=== PATIENT | male | born 1970 | race Hispanic/Latino ===

== ENCOUNTER 2020-05-17 09:48 | Emergency (ER) | payer BC ==
[2020-05-17] MEDS ORDERED: Sodium Chloride 0.9% 1,000 ML ONE (10:19)
[2020-05-17] MEDS ORDERED: Ketorolac Tromethamine 30 MG/ML VIAL ONE (10:19)
[2020-05-17 10:27] LABS: #Lymphocytes 0.7 thou/uL (1.20-3.40); #Monocytes 0.3 thou/uL (0.11-0.59); #Neutrophils 4.2 thou/uL (1.40-6.50); %Basophils 0.4 % (0.0-1.0); %Lymphocytes 12.9 % (21.0-51.0); %Monocytes 5.1 % (0.0-10.0); %Neutrophils 81.6 % (42.0-75.0); Hemoglobin 13.7 g/dL (14.0-18.0); Mean Corpuscular HGB CONC 32.4 g/dL (32.0-36.0); Mean Corpuscular Hemoglobin 29.7 pg (27.0-31.0); Mean Corpuscular Volume 91.6 fL (78.0-98.0); Platelet Count 206 thou/uL (130-400); RBC Distribution Width 12.4 % (11.5-14.5); Red Blood Cell (RBC) Count 4.61 mill/uL (4.70-6.10); White Blood Cell (WBC) Count 5.1 thou/uL (4.8-10.8)
[2020-05-17 10:39] LABS: Anion Gap 26 mmol/L (10-20); BUN (Urea Nitrogen) 12 mg/dL (8.4-25.7); Calc. Creatinine Clearance 0 mL/min (70-130); Calcium 9.3 mg/dL (7.8-10.44); Carbon Dioxide 12 mmol/L (22-29); Chloride 103 mmol/L (98-107); Estimated GFR-MDRD 51; Glucose 143 mg/dL (70-105); Potassium 4.1 mmol/L (3.5-5.1); Sodium 137 mmol/L (136-145)
--- NOTE | 2020-05-17 10:40 | RAD ---
EXAM: Chest 2 views: HISTORY: Cough COMPARISON: None. FINDINGS: There is a normal-sized cardiomediastinal silhouette. There is no evidence of consolidation, mass, or pleural effusion. The bones are unremarkable. IMPRESSION: No evidence of acute cardiopulmonary disease
[2020-05-17 11:14] LABS: Base Excess-Venous -14.5 mmol/L (-2.0 to 3.0); Bicarbonate (HCO3v) 13.1 mmol/L (22.0-28.0); CO2 Tension (PvCO2) 35.9 mmHg (40.0-50.0); Chloride 110 mmol/L (98-107); Hemoglobin - Calc 13.9 g/dL (14.0-18.0); Potassium 4.5 mmol/L (3.5-5.1); Sodium 134 mmol/L (138-145); T. Carbon Dioxide 14.2 mmol/L (22.0-28.0); vO2 Saturation-calc 79.6 % (60.0-85.0)
[2020-05-17 11:27] LABS: Bilirubin Small (Negative); Blood, Urine Negative (Negative); Clarity Clear (Clear); Glucose, Urine (Dipstick) 500 mg/dL (Negative); Leukocyte Negative (Negative); Nitrite Negative (Negative); Protein, Urine (Dipstick) 100 mg/dL (Neg-Trace); Urobilinogen 0.2 mg/dL (Less than 2)
[2020-05-17] MEDS ORDERED: Sodium Chloride 0.9% 100 ML ONE (11:28)
[2020-05-17] MEDS ORDERED: Insulin Regular 300 UNITS/3 ML VIAL ONE (11:28)
[2020-05-17] MEDS ORDERED: Dextrose 5 %-0.45 % NaCl 1,000 ML ONE (11:28)
[2020-05-17 11:34] LABS: Bacteria/HPF Rare-Few HPF (None Seen); Mucous/LPF Rare LPF (<2+); RBC/HPF None Seen HPF (0-3); Squamous Epithelial 0-3 HPF (0-3); WBC/HPF None Seen HPF (0-3)
== END 2020-05-17 11:53 | disposition short-term general hospital (02) ==
LOC: MADERS 09:48
DX: E11.10 Type 2 diabetes mellitus with ketoacidosis without coma (principal); Z79.84 Long term (current) use of oral hypoglycemic drugs; Z79.899 Other long term (current) drug therapy
CPT/HCPCS: 36415; 71046; 80048; 81003; 81015; 82330; 82550; 82803; 83605; 84484; 85025; 96374; 96375; 96376; J1815; J1885; J3490; J7042; J7050

== ENCOUNTER 2024-11-28 23:45 | Emergency (ER) | payer BC ==
[~2024-11-28 23:45] MED LIST: Iopamidol 370 76% 100 ML VIAL ONE
[2024-11-29] MEDS ORDERED: Metoclopramide HCl 10 MG (2 mL) VIAL ONE (00:23)
[2024-11-29] MEDS ORDERED: Lactated Ringer's 1,000 ML ONE (00:24)
[2024-11-29] MEDS ORDERED: Morphine 4 MG/ML VIAL ONE (00:24)
[2024-11-29] MEDS ORDERED: Famotidine/PF 20 mg/2ml Vial ONE (00:24)
[2024-11-29] MEDS ORDERED: Acetaminophen 500 MG TAB ONE (00:24)
[2024-11-29 00:31] LABS: Band 2 % (5-11); Hematocrit 47.6 % (42.0-52.0); Hemoglobin 15.4 g/dL (14.0-18.0); Lymphocytes 14 % (21-51); MDiff Complete? YES; Mean Corpuscular HGB CONC 32.5 g/dL (32.0-36.0); Mean Corpuscular Hemoglobin 29.2 pg (27.0-31.0); Mean Corpuscular Volume 89.9 fl (78.0-98.0); Mean Platelet Volume 6.3 fL (7.4-10.4); Monocytes 4 % (0-10); Neutrophil 80 % (42-75); Platelet Count 229 10x3/uL (130-400); RBC Distribution Width 12.8 % (11.5-14.5); Red Blood Cell (RBC) Count 5.29 mill/uL (4.70-6.10); White Blood Cell (WBC) Count 10.1 10x3/uL (4.8-10.8)
[2024-11-29 00:39] LABS: Base Excess-Venous 2.1 mmol/L (-2.0 to 3.0); Bicarbonate (HCO3v) 28.7 mmol/L (22.0-28.0); CO2 Tension (PvCO2) 50.3 mmHg (42.0-51.0); Calcium, Ionized 1.31 mmol/L (1.15-1.33); Chloride 99 mmol/L (98-107); Hemoglobin - Calc 16.8 g/dL (14.0-18.0); Potassium 4.7 mmol/L (3.5-5.1); Sodium 136 mmol/L (138-145); T. Carbon Dioxide 30.2 mmol/L (22.0-28.0); vO2 Saturation-calc 76.3 % (60.0-85.0)
[2024-11-29 00:40] LABS: ALT (SGPT) 20 U/L (8-55); AST (SGOT) 15 U/L (5-34); Albumin 4.3 g/dL (3.5-5.0); Alkaline Phosphatase 72 U/L (40-110); Anion Gap 14 mmol/L (10-20); BUN (Urea Nitrogen) 18 mg/dL (8.4-25.7); Bilirubin, Total 0.6 mg/dL (0.2-1.2); Calc. Creatinine Clearance 0 mL/min (70-130); Calcium 10.1 mg/dL (7.8-10.44); Carbon Dioxide 26 mmol/L (22-29); Chloride 100 mmol/L (98-107); Estimated GFR 91; Globulin 3.2 g/dL (2.4-3.5); Glucose 350 mg/dL (70-105); Lipase 719 U/L (8-78); Potassium 4.6 mmol/L (3.5-5.1); Protein, Total 7.5 g/dL (6.0-8.3); Sodium 135 mmol/L (136-145)
[2024-11-29 00:43] LABS: Troponin I Less than 0.010 ng/mL (< 0.028)
== END 2024-11-29 02:52 | disposition short-term general hospital (02) ==
LOC: MADERS 23:45
DX: K85.90 Acute pancreatitis without necrosis or infection, unspecified (principal); E11.9 Type 2 diabetes mellitus without complications; E78.5 Hyperlipidemia, unspecified; I10 Essential (primary) hypertension; Z79.85 Long-term (current) use of injectable non-insulin antidiabetic drugs; Z79.84 Long term (current) use of oral hypoglycemic drugs; Z79.899 Other long term (current) drug therapy
CPT/HCPCS: 74177; 80053; 82330; 82435; 82803; 83605; 83690; 84132; 84295; 84484; 85014; 85025; 93005; 96374; 96375; J2272; J2765; J3490; J7120; Q9967